=== PATIENT | male | born 1990 | race Caucasian/White ===

== ENCOUNTER → 2020-01-05 15:16 | Outpatient (CLI) | payer OTHER, SELFPAY ==
--- NOTE | 2020-01-05 15:24 | XR_ITS ---
PROCEDURE: XR FOOT RT MIN 3V CLINICAL INDICATION: RT FOOT PAIN Posttraumatic pain COMPARISON: No exams were available for comparison FINDINGS: There is an acute fracture involving the mid shaft of the proximal phalanx of the 5th digit. This is minimally displaced. There is mild lateral angulation of the distal fracture fragment.. There is 2 mm lateral displacement of the distal fracture fragment The joint spaces are well-preserved. No significant degenerative/arthritic changes. No erosive changes evident. Other findings:None. IMPRESSION: Minimally displaced fracture involves the proximal phalanx of the 5th digit Dictated by: Ton Hernandez MD 01/05/2020 15:58 Electronically signed by Ton Hernandez MD in [place] 01/05/2020 15:58
== END ==
PROVIDERS: PCP Family Medicine; Visit Provider Family Medicine
DX: M79.671 Pain in right foot (principal)
CPT/HCPCS: 73630